=== PATIENT | female | born 1930 | race Caucasian/White ===

== ENCOUNTER → 2016-12-21 | Outpatient (REF) | payer MEDICARE ==
[~2016-12-21] MED LIST: /MOM400 PO; /WARF5TA PO; ARTH1TAB PO; ATIV0.5T3 PO; ATIV1TAB10 PO; ATIV1TAB7 PO; DULC10SU2 PR; DULC10SU9 PR; DULC5TAB PO; ENEMENE6 PR; FAMO1TAB25 PO; FAMO20TA PO; HYDR7.5T38 PO; KETO0.4S OD; KETO5OPD OD; LEVO25TA5 PO; LORT5TAB PO; MILKSUS5 PO; MIRA3350 PO; MULTLIQ PO; NORCOTAB PO; PERC2.5T PO; POTA1INJ PO; PRED1SUS OD; PRED1SUS6 OD; PRIL20CA PO; PROT1TAB2 PO; PROTPAK PO; REGUPOW PO; RISP1TAB21 PO; SENO8.6T10 PO; SUCR1TA PO; SYNT25TA PO; TRAZ25TA PO; TRAZ50TA4 PO; TYLE325T5 PO; ZOFR20TA PO; ZOFR4SOL PO; [UNRECOGNIZED DRUG - CODE] PR
[2016-12-21 08:57] LABS: BASO % 0.5 % (0.0-1.0); EOS # 0.3 K/mm3 (0.0-0.50); EOS % 3.6 % (0.0-3.0); LARGE UNSTAINED CELL # 0.2 K/mm3 (0.0-0.4); LARGE UNSTAINED CELL % 2.4 % (0.0-4.0); LYMPH # 2.3 K/mm3 (1.5-4.5); LYMPH % 25.1 % (24.0-44.0); MEAN CORPUSCULAR HEMOGLOBIN 31.6 pg (27.0-33.0); MEAN CORPUSCULAR HGB CONC 32.1 g/dl (32.0-36.5); MEAN CORPUSCULAR VOLUME 98.7 fl (80.0-96.0); MONO # 0.8 K/mm3 (0.0-0.8); MONO % 9.6 % (0.0-5.0); NEUTROPHILS % 58.9 % (36.0-66.0); PLATELET COUNT, AUTOMATED 219 k/mm3 (150-450); RED CELL DISTRIBUTION WIDTH 13.1 % (11.5-14.5); WHITE BLOOD COUNT 8.5 K/mm3 (4.0-10.0)
== END ==
LOC: SKLAB8 07:00
PROVIDERS: ATTEND Family Medicine
DX: E03.9 Hypothyroidism, unspecified (principal)

== ENCOUNTER → 2017-01-18 | Outpatient (REF) | payer MEDICARE ==
[2017-01-18 11:10] LABS: CREATININE FOR GFR 1.22 MG/DL (0.55-1.02); GLOMERULAR FILTRATION RATE 44.4 (>32); POTASSIUM SERUM 3.9 MEQ/L (3.5-5.1)
== END ==
LOC: SKLAB8 08:00
PROVIDERS: ATTEND Family Medicine
DX: E03.9 Hypothyroidism, unspecified (principal)

== ENCOUNTER → 2017-07-26 | Outpatient (REF) | payer MEDICARE ==
[~2017-07-26] MED LIST changes: +TRAZ50TA11 PO; -TRAZ50TA4 PO
[2017-07-26 09:17] LABS: CALCIUM LEVEL 9.2 MG/DL (8.8-10.2); CREATININE FOR GFR 1.04 MG/DL (0.55-1.02); GLOMERULAR FILTRATION RATE 53.4 (>32); POTASSIUM SERUM 4.4 MEQ/L (3.5-5.1)
[2017-07-26 09:27] LABS: MEAN CORPUSCULAR HEMOGLOBIN 32.8 pg (27.0-33.0); MEAN CORPUSCULAR VOLUME 96.3 fl (80.0-96.0); RED CELL DISTRIBUTION WIDTH 12.7 % (11.5-14.5); WHITE BLOOD COUNT 7.1 K/mm3 (4.0-10.0)
== END ==
LOC: SKLAB8 07:00
PROVIDERS: ATTEND Family Medicine
DX: G30.9 Alzheimer's disease, unspecified (principal); F02.80 Dementia in other diseases classified elsewhere, unspecified severity, without behavioral disturbance, psychotic disturbance, mood disturbance, and anxiety; D64.9 Anemia, unspecified

== ENCOUNTER → 2017-09-13 | Outpatient (REF) | payer MEDICARE | LOC: SKLAB8 07:00 | PROVIDERS: ATTEND Family Medicine | DX: E03.9 Hypothyroidism, unspecified (principal) ==